=== PATIENT | female | born 1955 | race Caucasian/White ===

== ENCOUNTER 2020-10-01 13:41 | Emergency (ER) | payer MEDICARE, OTHER ==
[2020-10-01 13:46] VITALS: TEMP 97.9
[2020-10-01 14:30] VITALS: RESP 18
[2020-10-01 14:47] LABS: Basophils % (A) 0 %; Eosinophils # (A) 0.3 k/uL (0-0.7); Eosinophils % (A) 2 %; HCT 43.9 % (34.0-46.0); HGB 14.8 gm/dL (11.4-16.0); Lymphocytes # (A) 1.2 k/uL (1.0-4.8); Lymphocytes % (A) 11 %; MCH 31.7 pg (25.0-35.0); MCHC 33.8 g/dL (31.0-37.0); MCV 93.8 fL (80.0-100.0); Mean Platelet Volume 7.1; Monocytes # (A) 0.6 k/uL (0-1.0); Monocytes % (A) 5 %; Neutrophils # (A) 9.1 k/uL (1.3-7.7); Neutrophils % (A) 81 %; Platelet Count 210 k/uL (150-450); RBC 4.67 m/uL (3.80-5.40); RDW 12.4 % (11.5-15.5); WBC 11.3 k/uL (3.8-10.6)
--- NOTE | 2020-10-01 14:47 | XR ---
KUB HISTORY: Bloating and constipation Frontal KUB and 2 images There is an S-shaped scoliosis in the thoracic lumbar spine. There are overlying artifacts. Lung base s are clear. There is no evident renal calcification. No bowel obstruction or pneumoperitoneum eviden t. Possible vascular calcifications within the pelvis. There is retained fecal debris within the dist ribution of the colon. IMPRESSION: No evident renal calcification. Additional findings above.
[2020-10-01 14:50] LABS: Appearance,Urine Clear (Clear); Bacteria,Urine Rare /hpf; Bilirubin,Urine Negative (Negative); Blood,Urine Small (Negative); Color,Urine Colorless; Glucose,Urine (UA) Negative (Negative); Ketones,Urine Negative (Negative); Leukocyte Esterase,Urine Small (Negative); Nitrite,Urine Negative (Negative); Protein,Urine Negative (Negative); RBC,Urine 2 /hpf (0-5); Specific Gravity,Urine 1.003 (1.001-1.035); Squamous Epithelial Cell,Urine 2 /hpf (0-4); Urobilinogen,Urine <2.0 mg/dL (<2.0); WBC,Urine 6 /hpf (0-5)
[2020-10-01 14:59] LABS: ALT 18 U/L (4-34); AST 35 U/L (14-36); African American GFR (CKD) >90 (>60 ml/min/1.73 sqM); Albumin 4.6 g/dL (3.5-5.0); Alkaline Phosphatase 92 U/L (38-126); Anion Gap 7 mmol/L; Blood Urea Nitrogen 11 mg/dL (7-17); Carbon Dioxide 28 mmol/L (22-30); Chloride 98 mmol/L (98-107); Glucose 111 mg/dL (74-99); Non-African American GFR(CKD) >90 (>60 ml/min/1.73 sqM); Sodium 133 mmol/L (137-145); Total Bilirubin 0.9 mg/dL (0.2-1.3); Total Protein 7.5 g/dL (6.3-8.2)
[2020-10-01 15:01] LABS: INR 0.9 (<1.2); Partial Thromboplastin Time 23.1 sec (22.0-30.0); Prothrombin Time 9.6 sec (9.0-12.0)
--- NOTE | 2020-10-01 15:07 | ED ---
GI Bleed HPI - General Chief complaint: GI Bleed Stated complaint: Rectal bleeding Time Seen by Provider: 10/01/20 14:01 Source: patient Mode of arrival: ambulatory Limitations: no limitations - History of Present Illness Initial comments: Patient is a 65-year-old female, history of hypertension, presenting to the emergency Department with complaints of having rectal bleeding when she has a bowel movement since Thursday. Patient states she has had a olmos with hemorrhoids over the past year. She has tried some steroid cream recently without improvement. She states that 3 days ago, she had a bowel movement and noticed a lot of blood, bright red in the toilet. The external hemorrhoid. She states over the weekend she is continues to have some blood with each bowel movement, she also noticed a little bit of blood when she passes gas. She stat es she has not had a bowel movement since yesterday. She does admit to some mild abdominal bloating but no abdominal pain. She is not on blood thinners. She has not had a colonoscopy. She states that she "does not like to go to doctors." She states she does have a history of high blood pressure but does not take medication for it. She denies any fever or chills, no dysuria. She denies any headaches or blurry vision. She has not seen her doctor for this. She has no further complaints. Upon arrival to the ER, she is hypertensive at 203/109, rest of vitals are normal. - Related Data Home Medications Medication Instructions Recorded Confirmed Garlic 2 tab PO TID 10/01/20 10/01/20 Magnesium Oxide [Magox 400] 400 mg PO DAILY 10/01/20 10/01/20 Multivitamins, Thera [Multivitamin 1 tab PO DAILY 10/01/20 10/01/20 (formulary)] Niacin [Plain Niacin] 500 mg PO DAILY 10/01/20 10/01/20 Selenium 100 mcg PO DAILY 10/01/20 10/01/20 Zinc 50 mg PO DAILY 10/01/20 10/01/20 Previous Rx's Medication Instructions Recorded Hydrocortisone Cream 1 applic RECTAL BID 7 Days #1 tube 10/01/20 [Hydrocortisone 2.5% Cream] Allergies Allergy/AdvReac Type Severity Reaction Status Date / Time No Known Allergies Allergy Verified 10/01/20 15:19 Review of Systems ROS Statement: Those systems with pertinent positive or pertinent negative responses have been documented in the HPI. ROS Other: All systems not noted in ROS Statement are negative. Past Medical History Past Medical History: Hypertension History of Any Multi-Drug Resistant Organisms: None Reported Past Surgical History: Section Past Psychological History: No Psychological Hx Reported Smoking Status: Never smoker Past Alcohol Use History: Occasional Past Drug Use History: Marijuana General Exam - General Exam Comments Initial Comments: GENERAL: Patient is well-developed and well-nourished. Patient is nontoxic and in no acute distress. HEAD: Atraumatic, normocephalic. EYES: Pupils equal round and reactive to light, extraocular movements intact, sclera anicteric, conjunctiva are normal. Eyelids were unremarkable. ENT: TMs normal, nares patent, oropharynx clear without exudates. Moist mucous membranes. NECK: Normal range of motion, supple without lymphadenopathy or JVD. LUNGS: Unlabored respirations. Breath sounds clear to auscultation bilaterally and equal. No wheezes rales or rhonchi. HEART: Regular rate and rhythm without murmurs, rubs or gallops. ABDOMEN: Soft, nontender, normoactive bowel sounds. No guarding, no rebound. No masses appreciated. : Deferred MUSCULOSKELETAL: Normal extremities with adequate strength and normal range of motion, no pitting or edema. No clubbing or cyanosis. NEUROLOGICAL: Patient is alert and oriented x 3. Motor and sensory are also intact. Cranial nerves II through XII grossly intact. Symmetrical smile. Normal speech, normal gait. PSYCH: Normal mood, normal affect. SKIN: Warm, Dry, normal turgor, no rashes or lesions noted. Limitations: no limitations Rectal exam: Present: normal rectal tone, heme (+) stool, hemorrhoids (External hemorrhoid present, internal hemorrhoids felt.). Absent: fecal impaction Course Vital Signs 10/01/20 10/01/20 10/01/20 13:43 14:20 14:32 Temperature 97.9 F Pulse Rate 89 81 84 Respiratory 20 18 18 Rate Blood Pressure 200/113 141/115 203/109 O2 Sat by Pulse 97 Oximetry 10/01/20 10/01/20 10/01/20 15:00 15:30 16:11 Temperature Pulse Rate 90 95 96 Respiratory 18 18 18 Rate Blood Pressure 199/117 180/103 196/104 O2 Sat by Pulse 98 98 Oximetry Medical Decision Making - Medical Decision Making Patient is a 65-year-old female here with concerns of rectal bleeding when she has a bowel movement for the past 3 days. She does have visible external hemorrhoids on exam and also anginal hemorrhoids. There is no active bleeding. She is hypertensive upon arrival, she does have a history of this but does not take any medications for this. She does not "go to doctors." Labs show no acute processes, hemoglobin is normal, urine shows no evidence of infection at this time, stool occult blood is positive, however I feel like this is from her hemorrhoids. Discussed with patient that she needs to follow up with a family doctor and/or a surgeon to take care of her hemorrhoids. I will give her referral to family doctor as well as a surgeon. Patient's blood pressure remained elevated in the ER, did give her a tablet of clonidine 0.2mg. Patient states she knows she is also take blood pressure medication but does not. She does not have a PCP either. Patient is stable for discharge. Patient is in agreement with this plan of care. Return parameters were discussed with the patient and they verbalized understanding. Case discussed with Dr. Amos. - Lab Data Result diagrams: 10/01/20 14:43 10/01/20 14:43 Lab Results 10/01/20 10/01/20 10/01/20 Range/Units 14:34 14:43 14:43 WBC 11.3 H (3.8-10.6) k/uL RBC 4.67 (3.80-5.40) m/uL Hgb 14.8 (11.4-16.0) gm/dL Hct 43.9 (34.0-46.0) % MCV 93.8 (80.0-100.0) fL MCH 31.7 (25.0-35.0) pg MCHC 33.8 (31.0-37.0) g/dL RDW 12.4 (11.5-15.5) % Plt Count 210 (150-450) k/uL MPV 7.1 Neutrophils % 81 % Lymphocytes % 11 % Monocytes % 5 % Eosinophils % 2 % Basophils % 0 % Neutrophils # 9.1 H (1.3-7.7) k/uL Lymphocytes # 1.2 (1.0-4.8) k/uL Monocytes # 0.6 (0-1.0) k/uL Eosinophils # 0.3 (0-0.7) k/uL Basophils # 0.0 (0-0.2) k/uL PT 9.6 (9.0-12.0) sec INR 0.9 (<1.2) APTT 23.1 (22.0-30.0) sec Sodium (137-145) mmol/L Potassium (3.5-5.1) mmol/L Chloride (98-107) mmol/L Carbon Dioxide (22-30) mmol/L Anion Gap mmol/L BUN (7-17) mg/dL Creatinine (0.52-1.04) mg/dL Est GFR (CKD-EPI)AfAm (>60 ml/min/1.73 sqM) Est GFR (CKD-EPI)NonAf (>60 ml/min/1.73 sqM) Glucose (74-99) mg/dL Calcium (8.4-10.2) mg/dL Total Bilirubin (0.2-1.3) mg/dL AST (14-36) U/L ALT (4-34) U/L Alkaline Phosphatase (38-126) U/L Total Protein (6.3-8.2) g/dL Albumin (3.5-5.0) g/dL Urine Color Urine Appearance (Clear) Urine pH (5.0-8.0) Ur Specific [place] (1.001-1.035) Urine Protein (Negative) Urine Glucose (UA) (Negative) Urine Ketones (Negative) Urine Blood (Negative) Urine Nitrite (Negative) Urine Bilirubin (Negative) Urine Urobilinogen (<2.0) mg/dL Ur Leukocyte Esterase (Negative) Urine RBC (0-5) /hpf Urine WBC (0-5) /hpf Ur Squamous Epith Cells (0-4) /hpf Urine Bacteria (None) /hpf Stool Occult Blood Positive H (Negative) 10/01/20 10/01/20 Range/Units 14:43 14:43 WBC (3.8-10.6) k/uL RBC (3.80-5.40) m/uL Hgb (11.4-16.0) gm/dL Hct (34.0-46.0) % MCV (80.0-100.0) fL MCH (25.0-35.0) pg MCHC (31.0-37.0) g/dL RDW (11.5-15.5) % Plt Count (150-450) k/uL MPV Neutrophils % % Lymphocytes % % Monocytes % % Eosinophils % % Basophils % % Neutrophils # (1.3-7.7) k/uL Lymphocytes # (1.0-4.8) k/uL Monocytes # (0-1.0) k/uL Eosinophils # (0-0.7) k/uL Basophils # (0-0.2) k/uL PT (9.0-12.0) sec INR (<1.2) APTT (22.0-30.0) sec Sodium 133 L (137-145) mmol/L Potassium 4.1 (3.5-5.1) mmol/L Chloride 98 (98-107) mmol/L Carbon Dioxide 28 (22-30) mmol/L Anion Gap 7 mmol/L BUN 11 (7-17) mg/dL Creatinine 0.50 L (0.52-1.04) mg/dL Est GFR (CKD-EPI)AfAm >90 (>60 ml/min/1.73 sqM) Est GFR (CKD-EPI)NonAf >90 (>60 ml/min/1.73 sqM) Glucose 111 H (74-99) mg/dL Calcium 10.0 (8.4-10.2) mg/dL Total Bilirubin 0.9 (0.2-1.3) mg/dL AST 35 (14-36) U/L ALT 18 (4-34) U/L Alkaline Phosphatase 92 (38-126) U/L Total Protein 7.5 (6.3-8.2) g/dL Albumin 4.6 (3.5-5.0) g/dL Urine Color Colorless Urine Appearance Clear (Clear) Urine pH 6.0 (5.0-8.0) Ur Specific [place] 1.003 (1.001-1.035) Urine Protein Negative (Negative) Urine Glucose (UA) Negative (Negative) Urine Ketones Negative (Negative) Urine Blood Small H (Negative) Urine Nitrite Negative (Negative) Urine Bilirubin Negative (Negative) Urine Urobilinogen <2.0 (<2.0) mg/dL Ur Leukocyte Esterase Small H (Negative) Urine RBC 2 (0-5) /hpf Urine WBC 6 H (0-5) /hpf Ur Squamous Epith Cells 2 (0-4) /hpf Urine Bacteria Rare H (None) /hpf Stool Occult Blood (Negative) - EKG Data EKG Comments: Normal sinus rhythm, incomplete RBBB, no signs of acute ischemia. Ventricular rate 78, OH interval 116, QT 374. Disposition Clinical Impression: Internal and external bleeding hemorrhoids, Constipation, Hypertension Disposition: HOME SELF-CARE Condition: Stable Instructions (If sedation given, give patient instructions): Hemorrhoids (ED) Additional Instructions: Please return to the Emergency Department if symptoms worsen or any other olvin rns. Recommend MiraLAX daily for 1-2 weeks to improve regularity. May use steroid cream for external and internal hemorrhoids. Please follow-up with family doctor for hypertension and surgery regarding the hemorrhoids. Prescriptions: Hydrocortisone Cream [Hydrocortisone 2.5% Cream] 1 applic RECTAL BID 7 Days #1 tube Is patient prescribed a controlled substance at d/c from ED?: No Referrals: None,Stated [Primary Care Provider] - 1-2 days Ayesha Pendleton MD [STAFF PHYSICIAN] - 1-2 days Liza Benavidez MD [REFERRING] - 1-2 days Meaghan Awan MD [STAFF PHYSICIAN] - 1-2 days
[2020-10-01 15:26] LABS: Potassium 4.1 mmol/L (3.5-5.1)
[2020-10-01] MEDS ORDERED: cloNIDine HCL 0.2 MG TAB PO STA (15:53)
[2020-10-01 16:14] VITALS: BP 196/104; PULSE 96
== END 2020-10-01 16:11 | disposition home or self-care (01) ==
LOC: EC 13:41
DX: K64.4 Residual hemorrhoidal skin tags (principal); K64.8 Other hemorrhoids; I10 Essential (primary) hypertension; K59.00 Constipation, unspecified; F12.90 Cannabis use, unspecified, uncomplicated
CPT/HCPCS: 36415; 74018; 80053; 81001; 82272; 85025; 85610; 85730; 93005; 99284